=== PATIENT | male | born 1965 | race Caucasian/White ===

== ENCOUNTER → 2017-11-23 | Outpatient (CLI) | payer BC ==
[2017-11-23 11:04] LABS: ABSOLUTE BASOPHILS # (AUTO) 0.1 10^3/uL (0.0-0.2); ABSOLUTE EOSINOPHILS # (AUTO) 0.2 10^3/uL (0.0-0.6); ABSOLUTE LYMPHOCYTES (AUTO) 3.4 10^3/uL (0.5-4.7); ABSOLUTE MONOCYTES (AUTO) 0.5 10^3/uL (0.1-1.4); ABSOLUTE NEUT (AUTO) 4.6 10^3/uL (1.7-8.2); BASOPHILS % (AUTO) 0.8 % (0-2); EOSINOPHILS % (AUTO) 2.2 % (0-6); HEMATOCRIT 41.1 % (37.9-51.0); HEMOGLOBIN 13.7 g/dL (13.5-17.0); LYMPHOCYTES % (AUTO) 38.7 % (13-45); MEAN CORPUSCULAR HEMOGLOBIN 30.9 pg (27.0-33.4); MEAN CORPUSCULAR HGB CONC 33.4 g/dL (32.0-36.0); MEAN CORPUSCULAR VOLUME 93 fl (80-97); MONOCYTES % (AUTO) 5.7 % (3-13); PLATELET COUNT 286 10^3/uL (150-450); RED BLOOD COUNT 4.44 10^6/uL (4.35-5.55); RED CELL DISTRIBUTION WIDTH 14.1 % (11.5-14.0); SEGMENTED NEUTROPHILS % (AUTO) 52.6 % (42-78); TOTAL CELLS COUNTED % (AUTO) 100 %; WHITE BLOOD COUNT 8.8 10^3/uL (4.0-10.5)
[2017-11-23 11:27] LABS: ALANINE AMINOTRANSFERASE 28 U/L (21-72); ALBUMIN 4.3 g/dL (3.5-5.0); ALKALINE PHOSPHATASE 85 U/L (38-126); ANION GAP 10 (5-19); ASPARTATE AMINO TRANSFERASE 26 U/L (17-59); BILIRUBIN,DIRECT 0.2 mg/dL (0.0-0.4); BILIRUBIN,TOTAL 0.2 mg/dL (0.2-1.3); BLOOD UREA NITROGEN 18 mg/dL (7-20); CALCIUM 9.7 mg/dL (8.4-10.2); CARBON DIOXIDE 29 mmol/L (22-30); CHLORIDE 104 mmol/L (98-107); GLUCOSE 90 mg/dL (75-110); POTASSIUM 5.2 mmol/L (3.6-5.0); SODIUM 143.4 mmol/L (137-145); TOTAL PROTEIN 7.3 g/dL (6.3-8.2)
[2017-11-23 11:28] LABS: C-REACTIVE PROTEIN < 5.0 mg/L (<10.0)
--- NOTE | 2017-11-23 11:43 | RADIOLOGY REPORT (SQ) ---
EXAM DESCRIPTION: FOOT LEFT COMPLETE COMPLETED DATE/TIME: 11/23/2017 10:45 am REASON FOR STUDY: NON-PRS CHRONIC ULCER OTH PRT LEFT FOOT W FAT LAYER EXPOSED L97.522 NON-PRS CHRON IC ULCER OTH PRT LEFT FOOT W FAT LAYER COMPARISON: 10/12/2008 NUMBER OF VIEWS: Three views. TECHNIQUE: AP, lateral and oblique radiographic images acquired of the left foot. LIMITATIONS: None. FINDINGS: MINERALIZATION: Normal. BONES: There is subtle demineralization of the lateral and plantar aspect left 5th metatarsal head, w orrisome for early involvement with osteomyelitis. No fracture. JOINTS: No effusions. SOFT TISSUES: There is a plantar soft tissue ulcer about 1 cm in diameter along the 5th metatarsophal angeal joint region with surrounding soft tissue swelling. No radiopaque foreign body or soft tissue gas OTHER: No other significant finding. IMPRESSION: Plantar ulcer near the 5th metatarsophalangeal joint region with subtle demineralization of the 5th metatarsal head worrisome for early involvement with osteomyelitis TECHNICAL DOCUMENTATION: JOB ID: [id number] [employer]- All Rights Reserved Reading location - IP/workstation name: [email or web address]
[2017-11-23 11:48] LABS: ERYTHROCYTE SEDIMENTATION RATE 14 mm/hr (0-20)
== END ==
LOC: OD 10:16
PROVIDERS: ATTEND Nurse Practitioner
DX: L97.522 Non-pressure chronic ulcer of other part of left foot with fat layer exposed (principal)
CPT/HCPCS: 36415; 80053; 85025; 85652; 86140

== ENCOUNTER → 2017-12-02 | Outpatient (CLI) | payer BC ==
--- NOTE | 2017-12-02 10:12 | RADIOLOGY REPORT (SQ) ---
EXAM DESCRIPTION: MRI LT LOWER EXTREMITY COMBO COMPLETED DATE/TIME: 12/02/2017 9:42 am REASON FOR STUDY: L97.522 NON-PRESSURE CHRONIC ULCER OF OTHER PART OF LEFT FOOT WITH FAT LAYE L97.52 2 NON-PRS CHRONIC ULCER OTH PRT LEFT FOOT W FAT LAYER COMPARISON: Left foot films 11/23/2017 TECHNIQUE: Multiplanar imaging of the left forefoot to include T1-weighted, postcontrast T1-weighted , and T2-weighted images. CONTRAST TYPE AND DOSE: 15 mL Prohance. RENAL FUNCTION: GFR > 60. LIMITATIONS: None. FINDINGS: A 2 cm diameter plantar ulcer is present at the 5th metatarsophalangeal joint region. The re is a halo that enhancing soft tissue and edema extending into the plantar soft tissues along the 4 th and 5th metatarsophalangeal joints, the soft tissues surrounding the 5th metatarsophalangeal joint , and the soft tissues of the 5th toe. There is loss of bony cortex along the distal 5th metatarsal diaphysis best shown on axial series 4, image 23. Abnormal subcortical bony enhancement is present in this area, and along the 5th metatarsa l head and base of the 5th toe proximal phalanx compatible with osteomyelitis. This is best shown on coronal series 12, images 17-23. No deep space soft tissue abscess is identified. There is mild skin thickening and edema throughout the dorsum of the forefoot. Remainder of the fore foot is otherwise unremarkable. IMPRESSION: Osteomyelitis involving the distal 5th metatarsal and base 5th toe proximal phalanx. TECHNICAL DOCUMENTATION: JOB ID: [id number] [employer]- All Rights Reserved Reading location - IP/workstation name: [email or web address]
== END ==
LOC: RAD 12-01 06:51
PROVIDERS: ATTEND Nurse Practitioner
DX: L97.522 Non-pressure chronic ulcer of other part of left foot with fat layer exposed (principal); M86.8X7 Other osteomyelitis, ankle and foot
CPT/HCPCS: 73720; A9576

== ENCOUNTER → 2018-01-10 | Outpatient (CLI) | payer BC ==
--- NOTE | 2018-01-10 12:00 | RADIOLOGY REPORT (SQ) ---
EXAM DESCRIPTION: FOOT LEFT COMPLETE COMPLETED DATE/TIME: 01/10/2018 9:48 am REASON FOR STUDY: NON PRESSURE FAT LAYER EXPOSED L97.522 NON-PRS CHRONIC ULCER OTH PRT LEFT FOOT W FAT LAYER COMPARISON: 11/23/2017 NUMBER OF VIEWS: Three views. TECHNIQUE: AP, lateral and oblique radiographic images acquired of the left foot. LIMITATIONS: None. FINDINGS: MINERALIZATION: Normal. BONES: No acute fracture or dislocation. There is demineralization of the proximal end of proximal p halanx of the 5th digit and the distal 3rd of the 5th metatarsal which is more pronounced than on the previous study. Again the possibility of bony involvement by osteomyelitis should be considered. JOINTS: No effusions. SOFT TISSUES: There is soft tissue irregularity adjacent to the MTP joint of the 5th digit consistent with an ulceration. OTHER: No other significant finding. IMPRESSION: Demineralization of the proximal phalanx of the 5th digit in the distal 5th metatarsal a s noted above suspicious for bony involvement by osteomyelitis. There is an adjacent soft tissue ulc eration. Other findings as noted above TECHNICAL DOCUMENTATION: JOB ID: [id number] [employer]- All Rights Reserved Reading location - IP/workstation name: [email or web address]
== END ==
LOC: OD 09:34
PROVIDERS: ATTEND Preventive Medicine Undersea and Hyperbaric Medicine
DX: L97.522 Non-pressure chronic ulcer of other part of left foot with fat layer exposed (principal)

== ENCOUNTER → 2018-01-18 | Outpatient (CLI) | payer BC ==
--- NOTE | 2018-01-18 08:23 | RADIOLOGY REPORT (SQ) ---
EXAM DESCRIPTION: CHEST PA/LATERAL COMPLETED DATE/TIME: 01/18/2018 8:15 am REASON FOR STUDY: PNEUMOTHORAX, UNSPECIFIED COMPARISON: CT angio chest 07/22/2015 CT angio chest 07/09/2014 Two-view chest 06/17/2014 EXAM PARAMETERS: NUMBER OF VIEWS: two views TECHNIQUE: Digital Frontal and Lateral radiographic views of the chest acquired. RADIATION DOSE: NA LIMITATIONS: none FINDINGS: LUNGS AND PLEURA: No opacities, masses or pneumothorax. No pleural effusion. MEDIASTINUM AND HILAR STRUCTURES: No masses or contour abnormalities. HEART AND VASCULAR STRUCTURES: Heart normal size. No evidence for failure. BONES: Old healed right clavicle fracture. Degenerative changes thoracic spine. HARDWARE: None in the chest. OTHER: No other significant finding. IMPRESSION: NO SIGNIFICANT RADIOGRAPHIC FINDING IN THE CHEST. TECHNICAL DOCUMENTATION: JOB ID: [id number] [employer]- All Rights Reserved Reading location - IP/workstation name: [email or web address]
== END ==
LOC: OD 08:05
PROVIDERS: ATTEND Preventive Medicine Undersea and Hyperbaric Medicine
DX: J93.9 Pneumothorax, unspecified (principal)
CPT/HCPCS: 71046

== ENCOUNTER → 2018-03-30 | Outpatient (CLI) | payer BC ==
--- NOTE | 2018-03-30 09:54 | RADIOLOGY REPORT (SQ) ---
EXAM DESCRIPTION: FOOT LEFT COMPLETE COMPLETED DATE/TIME: 03/30/2018 8:52 am REASON FOR STUDY: NON-PRS CHRONIC ULCER OTH PRT LEFT FOOT W FAT LAYER EXPOSED L97.522 NON-PRS CHRON IC ULCER OTH PRT LEFT FOOT W FAT LAYER COMPARISON: None. NUMBER OF VIEWS: Three views. TECHNIQUE: AP, lateral and oblique radiographic images acquired of the left foot. LIMITATIONS: None. FINDINGS: MINERALIZATION: Normal. BONES: No acute fracture or dislocation. No worrisome bone lesions. JOINTS: Intact. SOFT TISSUES: Skin ulcer lateral aspect 5th metatarsal phalangeal joint. OTHER: No other significant finding. IMPRESSION: No evidence of osteomyelitis. TECHNICAL DOCUMENTATION: JOB ID: [id number] [employer]- All Rights Reserved Reading location - IP/workstation name: [email or web address]
== END ==
LOC: OD 08:32
PROVIDERS: ATTEND Preventive Medicine Undersea and Hyperbaric Medicine
DX: L97.522 Non-pressure chronic ulcer of other part of left foot with fat layer exposed (principal)

== ENCOUNTER 2019-05-23 20:43 | Emergency (ER) | payer BC, OTHER ==
[2019-05-23 22:05] LABS: ABSOLUTE BASOPHILS # (AUTO) 0.1 10^3/uL (0.0-0.2); ABSOLUTE EOSINOPHILS # (AUTO) 0.1 10^3/uL (0.0-0.6); ABSOLUTE LYMPHOCYTES (AUTO) 1.5 10^3/uL (0.5-4.7); ABSOLUTE MONOCYTES (AUTO) 0.8 10^3/uL (0.1-1.4); ABSOLUTE NEUT (AUTO) 7.8 10^3/uL (1.7-8.2); BASOPHILS % (AUTO) 0.7 % (0-2); EOSINOPHILS % (AUTO) 1.5 % (0-6); HEMATOCRIT 32.8 % (37.9-51.0); LYMPHOCYTES % (AUTO) 14.7 % (13-45); MEAN CORPUSCULAR HEMOGLOBIN 31.4 pg (27.0-33.4); MEAN CORPUSCULAR HGB CONC 33.5 g/dL (32.0-36.0); MEAN CORPUSCULAR VOLUME 94 fl (80-97); MONOCYTES % (AUTO) 7.4 % (3-13); PLATELET COUNT 313 10^3/uL (150-450); RED BLOOD COUNT 3.51 10^6/uL (4.35-5.55); RED CELL DISTRIBUTION WIDTH 16.2 % (11.5-14.0); SEGMENTED NEUTROPHILS % (AUTO) 75.7 % (42-78); TOTAL CELLS COUNTED % (AUTO) 100 %; WHITE BLOOD COUNT 10.2 10^3/uL (4.0-10.5)
[2019-05-23 22:07] LABS: INTERNATIONAL RATION (INR) 2.54; PROTHROMBIN TIME 27.8 SEC (11.4-15.4)
[2019-05-23 22:08] LABS: PARTIAL THROMBOPLASTIN TIME 49.6 SEC (23.5-35.8)
[2019-05-23 22:09] LABS: ALBUMIN 3.7 g/dL (3.5-5.0); ALKALINE PHOSPHATASE 86 U/L (38-126); ANION GAP 10 (5-19); ASPARTATE AMINO TRANSFERASE 24 U/L (17-59); BILIRUBIN,DIRECT 0.1 mg/dL (0.0-0.4); BILIRUBIN,TOTAL 0.2 mg/dL (0.2-1.3); BLOOD UREA NITROGEN 20 mg/dL (7-20); CALCIUM 8.5 mg/dL (8.4-10.2); CARBON DIOXIDE 28 mmol/L (22-30); CHLORIDE 99 mmol/L (98-107); GLUCOSE 95 mg/dL (75-110); POTASSIUM 4.4 mmol/L (3.6-5.0); TOTAL PROTEIN 6.4 g/dL (6.3-8.2)
[2019-05-23] MEDS ORDERED: TRANEXAMIC ACID INJ/PF 1,000 MG/10 ML SDV ONE (22:20)
[2019-05-23] MEDS ORDERED: TRANEXAMIC ACID INJ/PF 1,000 MG/10 ML SDV TOP ONE (22:44)
[2019-05-23] MEDS ORDERED: TRANEXAMIC ACID INJ/PF 1,000 MG/10 ML SDV IV ONE (23:04)
--- NOTE | 2019-05-23 23:11 | ER Document Report ---
ED General - General Chief Complaint: Leg Injury Stated Complaint: ARTERIAL HEMORRHAGE Time Seen by Provider: 05/23/19 21:56 Notes: 53-year-old male presents emergency department complaining of arterial bleeding from his left lower extremity. Patient states he had a femoropopliteal byass by Dr. Cintron in [place] on April 13. Patient has had poor healing of a portion of the bypass on his mid calf medially. States that today he was walking with the dog when it spontaneously opened and started spurting everywhere. Used his belt as a tourniquet and applied direct pressure, once EMS arrived they put on a regular tourniquet and applied more pressure. Bleeding seems to have stopped. Recently had his warfarin level checked, it was found to be 4 yesterday so he was switched from 10 mg to 7.5 mg. Denies dizziness or weakness, denies n umbness or tingling in his leg. TRAVEL OUTSIDE OF THE [place] IN LAST 30 DAYS: No - Related Data Allergies/Adverse Reactions: No Known Allergies Allergy (Unverified 06/13/14 15:04) Past Medical History - General Information source: Patient - Social History Smoking Status: Former Smoker Chew tobacco use (# tins/day): No Frequency of alcohol use: Rare Drug Abuse: None Family History: Reviewed & Not Pertinent Patient has suicidal ideation: No Patient has homicidal ideation: No - Past Medical History Cardiac Medical History: Reports: Hx Hypertension Skin Medical History: Reports Hx Psoriasis - Immunizations Hx Diphtheria, Pertussis, Tetanus Vaccination: No Review of Systems - Review of Systems Constitutional: No symptoms reported EENT: No symptoms reported Musculoskeletal: See HPI Hematologic/Lymphatic: See HPI -: Yes All other systems reviewed and negative Physical Exam - Vital signs Vitals: Resp 20 05/23/19 20:48 Interpretation: Normal - Notes Notes: GENERAL: Alert, interacts well. No acute distress. HEAD: Normocephalic, atraumatic EYES: Pupils equal, round and reactive to light, extraocular movements intact. ENT: Oral mucosa moist, tongue midline. NECK: Full range of motion, supple, trachea midline. LUNGS: Clear to auscultation bilaterally, no wheezes, rales or rhonchi, no respiratory distress. HEART: Regular rate and rhythm, no murmurs, gallops, rubs. EXTREMITIES: Moves all 4 extremities spontaneously, radial and dorsalis pedis pulses 2/4 bilaterally. No cyanosis. Tourniquet in place above the left knee. NEUROLOGICAL: Alert and oriented x3, normal speech. PSYCH: Normal mood, normal affect. SKIN: Warm, Dry, 1+ pitting edema to the left leg, medially there is an area of poor wound healing approximately 1-1/2 cm x 5 mm, bright red blood is spurting from it. It is able to be stopped with direct pressure. Course - Re-evaluation Re-evalutation: 05/23/19 23:11 CBC shows anemia with hemoglobin 11.0, INR therapeutic at 2.54, chemistries unremarkable. Direct pressure is held using Surgifoam and Telfa. Pressure was held for 20 minutes, Surgifoam and Telfa were then removed, no further bleeding is noted, small clot is noted within the wound site. New Surgifoam was applied as was new Telfa. This is wrapped in Coban. We will observe for the next 30 mi nutes while sitting up in bed with his leg stretched out in front of him. TXA is being infused. 05/24/19 01:42 Patient has been observed for over 2 hours, no further bleeding is been seen, patient has been observed while laying in bed, while having his leg sign off the side of the bed and while walking. No further bleeding is been seen. Patient is recommended to rest, leave his legs elevated and call his surgeon first thing in the morning. Return should bleeding restart. - Vital Signs Vital signs: Temp Pulse Resp BP Pulse Ox 98.4 F 104 H 13 127/83 H 98 05/23/19 20:51 05/23/19 20:51 05/23/19 21:02 05/23/19 22:01 05/23/19 22:01 - Laboratory Result Diagrams: 05/23/19 21:32 05/23/19 21:32 Laboratory results interpreted by me: 05/23/19 05/23/19 21:32 21:32 RBC 3.51 L Hgb 11.0 L Hct 32.8 L RDW 16.2 H PT 27.8 H APTT 49.6 H - EKG Interpretation by Me Additional EKG results interpreted by me: 05/24/19 01:43 EKG shows sinus rhythm rate of 97, normal axis, normal intervals, no ST segment elevations or depressions, there are T wave inversions in aVL per my interpretation. Critical Care Note - Critical Care Note Total time excluding time spent on procedures (mins): 32 Discharge - Discharge Clinical Impression: Left lower extremity bleeding, Postoperative bleeding from incision Condition: Stable Disposition: HOME, SELF-CARE Additional Instructions: Today your left leg was bleeding from the incision site on the proximal medial aspect of your left calf. The bleeding stopped after we infused TXA through the IV and held direct pressure with Surgifoam and Telfa. We then put new Surgifoam and new Telfa on it and held it in place with Coban. We have been watching this for over 2 hours, there is been no further bleeding even while sitting with your legs hanging off the side of the bed/in a chair or while walking. Please do not remove the dressing. If blood soaks through the dressing please return to the emergency department immediately. Please continue taking your Coumadin as directed. Today your INR was 2.54. Please call Dr. Cintron first thing in the morning to tell him about the bleeding. It did appear to be arterial in nature, it was bright red and it was spurting.
--- NOTE | 2019-05-23 23:46 | EKG REPORT ---
SEVERITY:- NORMAL ECG - SINUS RHYTHM : Confirmed by: Eber Brooks MD 23-May-2019 23:44:18
[2019-05-24 02:33] VITALS: BP 105/80
== END 2019-05-24 02:31 | disposition home or self-care (01) ==
LOC: ER 20:43
DX: I97.618 Postprocedural hemorrhage of a circulatory system organ or structure following other circulatory system procedure (principal); I10 Essential (primary) hypertension; Z79.02 Long term (current) use of antithrombotics/antiplatelets
CPT/HCPCS: 93005; 99285; 96374; 36415; 85025; 85610; 85730; 80053; 93010; J3490